=== PATIENT | male | born 1955 | race Two or more races ===

== ENCOUNTER 2023-02-04 05:09 | Emergency (ER) | payer OTHER ==
[~2023-02-04] VITALS: Ht 175.3 cm; Wt 115.0 kg
[2023-02-04] MEDS ORDERED: SODIUM CHLORIDE 0.9% 2,000 ML IV ONE (05:16)
[2023-02-04 05:30] VITALS: PULSE 100; RESP 21; O2SAT 87
[2023-02-04] MEDS ORDERED: NOREPINEPHRINE 8 MG/250ML KIT 250 ML IV SCH ×2 (05:32→05:45)
[2023-02-04] MEDS ORDERED: cefTRIAXone 1GM/50ML D5W 50 ML IV ONE ×2 (05:45)
[2023-02-04] MEDS ORDERED: VANCOMYCIN 1GM/250ML 250 ML IV ONE ×2 (05:45→05:53)
[2023-02-04] MEDS ORDERED: MIDAZOLAM DRIP 50 mg/50mL 50 ML IV SCH (05:45)
[2023-02-04] MEDS ORDERED: cefTRIAXone 1GM/50ML D5W 100 ML IV ONE (05:53)
[2023-02-04 06:06] LABS: Hematocrit 18.8 % (41.0-53.0); Mean Corpuscular Hemoglobin 28.8 pg (28.0-32.0); Mean Corpuscular Hgb Conc. 28.6 g/dL (32.0-36.0); Mean Corpuscular Volume 100.5 fL (80.0-100.0); Red Blood Cells 1.87 10^6/uL (4.5-5.90); White Blood Cell 7.7 10^3/uL (4.4-10.8)
[2023-02-04 06:11] LABS: Red Cell Distribution Width 22.1 % (11.8-14.3)
[2023-02-04 06:12] LABS: Hemoglobin 5.4 g/dL (13.5-17.5)
[2023-02-04 06:15] LABS: Basophils % (manual) 0 (0.0-2.0); Blast Cells 0; Myelocytes % 0; Reactive Lymphocytes 0
[2023-02-04] MEDS ORDERED: ROCURONIUM 10MG/ML 10ML VIAL IV ONE (06:23)
[2023-02-04 06:25] LABS: Lactic Acid w/Reflex 15.2 mmol/L (0.4-2.0)
[2023-02-04 06:26] LABS: Albumin 2.9 g/dL (3.2-4.8); Alkaline Phosphatase 93 U/L (46-116); Anion Gap 21 (5-15); Aspartate Aminotransferase 17 U/L (13-40); BUN/Creatinine Ratio 15.6 (10.0-20.0); Bilirubin, Total 0.3 mg/dL (0.2-1.0); Blood Urea Nitrogen 42 mg/dL (9-23); Calcium 9.1 mg/dL (8.7-10.4); Carbon Dioxide 10 mmol/L (20-30); Chloride 103 mmol/L (98-107); Glucose 272 mg/dL (74-106); Sodium 134 mmol/L (136-145); Total Protein 5.8 g/dL (5.7-8.2)
[2023-02-04 06:28] LABS: INR 1.21 (0.9-1.15); Partial Thromboplastin Time 49.9 SEC (24.5-34.5); Prothrombin Time 12.5 sec (9.3-11.8)
[2023-02-04 06:43] LABS: Alanine Aminotransferase 9 U/L (7-40)
[2023-02-04 06:47] LABS: Potassium 5.7 mmol/L (3.5-5.1)
[2023-02-04 07:00] VITALS: BP 65/13; PULSE 114; RESP 16; O2SAT 100
[2023-02-04 07:30] LABS: Band Neutrophils % (manual) 16; Eosinophils % (manual) 2 (0-7); Lymphocytes % (manual) 30 (10.0-50.0); Metamyelocytes % 8; Monocytes % (manual) 9 (0-12); Promyelocytes % 1
[2023-02-04 07:31] LABS: Anisocytosis Slight; Macrocytosis Slight; Platelet Estimate Adequate
== END 2023-02-04 07:41 ==
LOC: ER 05:09 → EDBD 05:11 → ER 07:41
DX: R06.00 Dyspnea, unspecified (principal)
CPT/HCPCS: 36415; 36600; 71045; 80053; 82805; 83605; 84484; 85007; 85027; 85379; 85610; 85730; 87040; 87070; 87205; 92950; 93005; 96361; 96365; 96375; 99285; J0696; J3370